=== PATIENT | female | born 1990 | race Caucasian/White ===

== ENCOUNTER 2022-10-17 23:04 | Emergency (ER) | payer SELFPAY ==
[2022-10-17] MEDS ORDERED: ACETAMINOPHEN 500 MG TABLET (FP) PO ONE (23:13)
[2022-10-17] MEDS ORDERED: DOXYCYCLINE HYCLATE 100 MG CAPSULE PO ONE ×2 (23:15→23:29)
[2022-10-17 23:21] VITALS: BP 117/69; PULSE 102; RESP 20; TEMP 101; BMI 20.3
[2022-10-17] MEDS ORDERED: ACETAMINOPHEN 500 MG TABLET (FP) ONE (23:29)
== END 2022-10-17 23:57 | disposition home or self-care (01) ==
LOC: FER 23:04
DX: R50.9 Fever, unspecified (principal); M79.10 Myalgia, unspecified site; R53.83 Other fatigue; U07.1 COVID-19
CPT/HCPCS: 0241U-QW; 36415; 86618; 87040; 99283-25